=== PATIENT | male | born 1950 | race Caucasian/White ===

== ENCOUNTER 2017-03-31 08:30 | Emergency (ER) | payer SELFPAY ==
--- NOTE | 2017-03-31 10:08 | RAD ---
HISTORY: Cough COMPARISONS: January 10, 2005 VIEWS: 4: Frontal dual-energy and lateral views of the chest. FINDINGS: CARDIOMEDIASTINAL SILHOUETTE: The cardiomediastinal silhouette is normal. TIMI: The timi are normal. PLEURA: The costophrenic angles are sharp. No pleural abnormalities are noted. LUNG PARENCHYMA: There is focal opacification of the right upper lung measuring approximately 4.9 cm in size. This is new from the 2005 examination. There is hyperinflation. ABDOMEN: The upper abdomen is clear. There is no subphrenic gas. BONES AND SOFT TISSUES: No bone or soft tissue abnormalities are noted. OTHER: None. IMPRESSION: FOCAL MASSLIKE OPACIFICATION OF THE RIGHT UPPER LUNG. RECOMMEND CONSIDERATION OF FURTHER EVALUATION WITH CONTRAST ENHANCED CT OF THE CHEST. COPD.
[2017-03-31 11:00] VITALS: BP 131/73
--- NOTE | 2017-03-31 12:30 | UC ---
Maximiliano Hurtado Angela, scribed for Nereida Lomas MD on 03/31/17 at 0922 . General HPI - HPI Summary HPI Summary: This pt is a 67 y/o male presenting to [facility] c/o feeling weak, tired progressively worse x approx 7 days. Donated blood one week ago (double red cells), felt tired the next day, but did not get better. Also noted cough, started a day or two before he donated blood. Cough has continued, with occasional white sputum production. Nausea x4 days, no vomit. Some loose stool , dark colored since yesterday, but has been taking Peptobismal last several days (without sx improvement). Has been able to work but, but has been tired. No loc. No rash. No recent fever but possibly a little warm. No chest pressure or pain perse. No shoulder or jaw discomfort. No recent travel. Non- smoker, quit several years ago Appetite poor last several days 2/2 nausea and feeling of unwellness. - History of Current Complaint Chief Complaint: UCGeneralIllness Stated Complaint: NAUSEA Time Seen by Provider: 03/31/17 09:16 Hx Obtained From: Patient Onset/Duration: Lasting Days, Still Present Timing: Constant Associated Signs & Symptoms: Positive: Nausea. Negative: Vomiting - Allergy/Home Medications Allergies/Adverse Reactions: Allergies Allergy/AdvReac Type Severity Reaction Status Date / Time Codeine Allergy Intermediate Hallucinati Verified 03/31/17 08:37 ons PMH/Surg Hx/FS Hx/Imm Hx Previously Healthy: Yes - denies health issues, but hasn't seen a doctor recently Other Endocrine History: DENIES: diabetes Other Cardiovascular History: DENIES: HTN - Surgical History Surgical History: Yes Surgery Procedure, Year, and Place: abd surgery bowel obstruction 2008 - Family History Known Family History: Positive: Cardiac Disease - Father: CAD. - Social History Alcohol Use: Occasionally Alcohol Amount: 16 OZ PER MONTH Substance Use Type: None Smoking Status (MU): Never Smoked Tobacco Have You Smoked in the Last Year: No - Immunization History Most Recent Influenza Vaccination: NEVER Most Recent Tetanus Shot: 05/24/15 Most Recent Pneumonia Vaccination: NEVER Review of Systems Constitutional: Fatigue - see hpi Skin: Negative Eyes: Negative ENT: Negative Respiratory: Cough Cardiovascular: Negative Gastrointestinal: Nausea Genitourinary: Negative Motor: Negative Neurovascular: Negative Musculoskeletal: Negative Neurological: Negative Psychological: Negative Is Patient Immunocompromised?: No All Other Systems Reviewed And Are Negative: Yes Physical Exam Triage Information Reviewed: Yes Appearance: Well-Nourished - sitting up. conversing easily and appropriately. NAD. Nontoxic. Looks tired. A little pale. Vital Signs: Initial Vital Signs Temp 99.3 F 03/31/17 08:37 Pulse 65 03/31/17 08:37 Resp 16 03/31/17 08:37 BP 140/76 03/31/17 08:37 Pulse Ox 95 03/31/17 08:37 Vital Signs Reviewed: Yes Eye Exam: Normal ENT Exam: Normal ENT: Positive: Pharynx normal Neck exam: Normal Neck: Positive: Supple Respiratory Exam: Normal Respiratory: Positive: Chest non-tender, Lungs clear - w/o exp wheeze, Normal breath sounds, No respiratory distress, No accessory muscle use Cardiovascular Exam: Normal Cardiovascular: Positive: RRR, No Murmur, Pulses Normal, Brisk Capillary Refill Abdominal Exam: Normal - no cvat appreciated. Abdomen Description: Positive: Nontender, No Organomegaly, Soft Bowel Sounds: Positive: Hyperactive - hyperactive but o/w normal Musculoskeletal Exam: Normal Musculoskeletal: Positive: Strength Intact - gait steady Neurological Exam: Normal - nonfocal, grossly intact Psychological Exam: Normal - conversing easily and appropriately Skin Exam: Normal - no visible or reported rash. a little pale. nondiaphoretic. Diagnostics - Radiology Chest XR Xray Interpretation: Positive (See Comments) - IMPRESSION: Focal masslike opacification of the right upper lung. Recommend consideration of further evaluation with contrast enhanced CT of the chest. COPD. ED physician has reviewed this radiology report and agrees. Radiology Interpretation Completed By: Radiologist - EKG Cardiac Rate: NL Cardiac Rhythm: Sinus: Normal - 60 bpm, PT 143, QTc 393. Questionable Qs in II, III, and aVF. No old EKG to compare. Course/Dx - Course Course Of Treatment: Reviewed EKG, no old for comparison. Reviewed Urine dip, FS glucose with pt (see below). Reviewed CXR and report, also spoke with Radiologist. Pt drank apple juice w/o difficulty or increased nausea report while in [facility] (after BG FS). I reviewed CXR report with pt. Given this (CXR) and general constellation of symptoms, benitez in the setting of recent blood loss ( double rbc donation), recommend evaluation / management in the ED. D/w Mr. Hernandez, who carefully considered, and agrees to go to the ED. Declines EMS, will drive. Questions as posed answered to the best of my ability. Elevated BP noted and advised to follow up with PCP. POC glucose is 61. Urine dip shows urine color yellow, urine clarity clear, urine pH 6.0, specif gravity 1.020, urine protein is negative, ur glucose is negative, urine ketones is negative, urine blood is negative, urine nitrite is negative, urine bilirubin is negative , urine urobilinogen is 0.2, u leukocyte esterase is negative. At 10:45, I spoke with YAHIR Villar from [facility]. - Differential Dx - Multi-Symptom Provider Diagnoses: Nausea, fatigue (see above MDM). cough, abnormal chest xray Discharge - Discharge Plan Condition: Guarded Disposition: ADMITTED TO [facility] Referrals: Mikal Martin MD [Primary Care Provider] - Additional Instructions: Please go to the Emergency Department. Call 911 if worse or new problem in the meantime. The documentation as recorded by the Maximiliano james Angela accurately reflects the service I personally performed and the decisions made by me, Nereida Lomas MD.
== END 2017-03-31 11:00 | disposition home or self-care (01) ==
LOC: UCEAST 08:30
DX: R53.83 Other fatigue (principal); R11.0 Nausea; R05 Cough; Z88.5 Allergy status to narcotic agent
CPT/HCPCS: 71020; 81003; 87502; 93005; 99212; G0463

== ENCOUNTER 2017-03-31 11:40 | Inpatient (IN) | payer MEDICARE ==
[2017-03-31] MEDS ORDERED: NS 0.9% 1000 ML* 1,000 ML IV ONE (12:21)
[2017-03-31] MEDS ORDERED: Ondansetron INJ* 2 MG/ML VIAL IV ONE (12:21)
[2017-03-31] MEDS ORDERED: Albuterol/Ipratropium NEB.SOL* Albuterol 2.5 MG/Ipratropium 0.5 MG 3 ML INH ONE (12:23)
[2017-03-31 13:00] LABS: Hematocrit 39 % (42-52); Hemoglobin 13.2 g/dl (14.0-18.0); Mean Corpuscular HGB Conc 34 g/dl (31-36); Mean Corpuscular Hemoglobin 32 pg (27-31); Mean Corpuscular Volume 93 fL (80-94); Mean Platelet Volume 8 um3 (7.4-10.4); Red Blood Count 4.18 10^6/ul (4.0-5.4); Red Cell Distribution Width 13 % (10.5-15); White Blood Count 8.9 10^3/ul (3.5-10.8)
[2017-03-31 13:19] LABS: Albumin 3.5 g/dL (3.2-5.2); BUN/Creatinine Ratio 16.7 (8-20); C Reactive Protein 42.55 mg/L (< 5.00); Calcium 8.7 mg/dL (8.6-10.3); EGFR African American 108.2 (>60); EGFR Non-African American 84.2 (>60); Globulin 3.6 g/dL (2-4); Potassium 3.9 mmol/L (3.5-5.0); Total Bilirubin 0.4 mg/dL (0.2-1.0); Total Protein 7.1 g/dL (6.4-8.9)
[2017-03-31] MEDS ORDERED: Iohexol 300* (CONTRAST) 10 ML SDV IV ONE (13:40)
--- NOTE | 2017-03-31 14:26 | RAD ---
INDICATION: RIGHT upper lung opacification noted on March 31, 2017 chest radiograph in setting of cough and nausea. COMPARISON: Chest radiograph of the same date TECHNIQUE: Multidetector CT images were obtained from the lung apices to the upper abdomen with 80 mL Omnipaque 300 IV contrast. Multiplanar reformation. REPORT: Corresponding with the chest radiograph there is a spiculated 4.1 x 2.3 cm masslike region of consolidation containing a few calcifications. At the apical segment of the RIGHT upper lobe. Mild inferior lingula greater than inferior RIGHT middle lobe airspace consolidation. Negative for pleural effusions. Small calcified mediastinal and hilar lymph nodes. Negative for thoracic lymphadenopathy. Negative for cardiomegaly or pericardial effusion. Normal diameter thoracic aorta. Unremarkable Limited images through the upper abdomen. Negative for suspicious focal osseous lesions. Mild thoracic degenerative spondylosis and mild dextroscoliosis. IMPRESSION: 1. Masslike consolidation at the apical segment of the RIGHT upper lobe corresponding with the radiographic finding containing a few calcifications. Given stigmata of prior granulomatous disease the differential includes post primary tuberculosis as well as lung carcinoma. 2. Mild alveolar consolidation at the inferior lingula and inferior RIGHT middle lobe. 3. Negative for pleural effusions. 4. Negative for thoracic lymphadenopathy.
[2017-03-31] MEDS ORDERED: Levofloxacin 750 MG IVPREMIX(* 750 MG/150 ML BAG IVPB ONE (14:55)
--- NOTE | 2017-03-31 15:42 | ED ---
Jozef Hurtado Benjamin, scribed for Finn Crain MD on 03/31/17 at 1233 . Respiratory - HPI Summary HPI Summary: 67yo male was sent to for further evaluation. Pt was seen at for nausea, and URI symptoms. Pt reports productive cough that he is unable to clear, and slight wheezing. Pt also reports decreased appetite. Pt donated double bag blood last Thursday. Pt took 8 units of peptobismal yesterday trying to relieve his symptoms but saw no relief. Pt also reported dark loose stool x1 after. Denies pain anywhere however reports some mild abdominal discomfort, stating doesnt feel right. Also denies leg swelling. Pt does not smoke. - History of Current Complaint Chief Complaint: EDGeneral Stated Complaint: GENERAL ILLNESS Time Seen by Provider: 03/31/17 12:03 Hx Obtained From: Patient Onset/Duration: Gradual Onset, Lasting Days, Still Present Timing: Constant Initial Severity: Mild Current Severity: Mild Pain Intensity: 0 Character: Wheezing, Cough (Productive) Sputum Amount: Small Aggravating Factor(s): Nothing Alleviating Factor(s): Nothing Associated Signs and Symptoms: URI, Wheezing - Allergy/Home Medications Allergies/Adverse Reactions: Allergies Allergy/AdvReac Type Severity Reaction Status Date / Time Codeine Allergy Intermediate Hallucinati Verified 03/31/17 08:37 ons PMH/Surg Hx/FS Hx/Imm Hx Endocrine/Hematology History: Denies: Hx Diabetes, Hx Thyroid Disease Cardiovascular History: Reports: Other Cardiovascular Problems/Disorders - SLIGHT ABNORMAL HEART BEAT Denies: Hx Hypertension Respiratory History: Denies: Hx Asthma, Hx Chronic Obstructive Pulmonary Disease (COPD) GI History: Denies: Hx Ulcer, Other GI Disorders History: Denies: Other Problems/Disorders Musculoskeletal History: Denies: Other Musculoskeletal History - SLIGHT SCOLIOSIS Sensory History: Reports: Hx Contacts or Glasses - READING Denies: Hx Hearing Aid Opthamlomology History: Reports: Hx Contacts or Glasses - READING Neurological History: Denies: Other Neuro Impairments/Disorders - Surgical History Surgery Procedure, Year, and Place: abd surgery bowel obstruction 2009 Hx Anesthesia Reactions: No - Immunization History Date of Tetanus Vaccine: Unk Date of Influenza Vaccine: None Infectious Disease History: No Infectious Disease History: Denies: Hx Clostridium Difficile, Hx Hepatitis, Hx Human Immunodeficiency Virus (HIV), Hx of Known/Suspected MRSA, Hx Shingles, Hx Tuberculosis, Hx Known/ Suspected VRE, Hx Known/Suspected VRSA, History Other Infectious Disease, Traveled Outside the [place] in Last 30 Days - Family History Known Family History: Positive: Hypertension - Social History Occupation: Employed Full-time Alcohol Use: Occasionally Alcohol Amount: 16 OZ PER MONTH Substance Use Type: Reports: None Hx Tobacco Use: No Smoking Status (MU): Never Smoked Tobacco Have You Smoked in the Last Year: No Review of Systems Constitutional: Negative Eyes: Negative ENT: Negative Cardiovascular: Negative Positive: Cough Positive: Nausea Genitourinary: Negative Musculoskeletal: Negative Skin: Negative Neurological: Negative Psychological: Normal All Other Systems Reviewed And Are Negative: Yes Physical Exam - Summary Physical Exam Summary: VITAL SIGNS: Reviewed. GENERAL: Patient is a well-developed and nourished male who is lying comfortable in the stretcher. Patient is not in any acute respiratory distress. HEAD AND FACE: No signs of trauma. No ecchymosis, hematomas or skull depressions. No sinus tenderness. EYES: PERRLA, EOMI x 2, No injected conjunctiva, no nystagmus. EARS: Hearing grossly intact. Ear canals and tympanic membranes are within normal limits. MOUTH: Oropharynx within normal limits. NECK: Supple, trachea is midline, no adenopathy, no JVD, no carotid bruit, no c- spine tenderness, neck with full ROM. CHEST: Symmetric, no tenderness at palpation LUNGS: Wheezing in lungs, bilaterally. No crackles. CVS: Regular rate and rhythm, S1 and S2 present, no murmurs or gallops appreciated. ABDOMEN: Soft, non-tender. No signs of distention. No rebound no guarding, and no masses palpated. Bowel sounds are normal. EXTREMITIES: FROM in all major joints, no edema, no cyanosis or clubbing. NEURO: Alert and oriented x 3. No acute neurological deficits. Speech is normal and follows commands. SKIN: Dry and warm Triage Information Reviewed: Yes Vital Signs On Initial Exam: Initial Vitals Temp Pulse Resp BP Pulse Ox 98.4 F 64 20 107/70 95 03/31/17 11:54 03/31/17 11:54 03/31/17 11:54 03/31/17 11:54 03/31/17 11:54 Vital Signs Reviewed: Yes - [place] Coma Scale Coma Scale Total: 15 Diagnostics - Vital Signs Vital Signs Temp Pulse Resp BP Pulse Ox 03/31/17 12:15 67 94 03/31/17 12:14 129/84 03/31/17 11:54 98.4 F 64 20 107/70 95 - Laboratory Lab Results: Lab Results 03/31/17 03/31/17 03/31/17 Range/Units 12:41 12:41 12:41 WBC 8.9 (3.5-10.8) 10^3/ul RBC 4.18 (4.0-5.4) 10^6/ul Hgb 13.2 L (14.0-18.0) g/dl Hct 39 L (42-52) % MCV 93 (80-94) fL MCH 32 H (27-31) pg MCHC 34 (31-36) g/dl RDW 13 (10.5-15) % Plt Count 284 (150-450) 10^3/ul MPV 8 (7.4-10.4) um3 Neut % (Auto) 73.9 (38-83) % Lymph % (Auto) 14.7 L (25-47) % [place] % (Auto) 8.8 (1-9) % Eos % (Auto) 2.0 (0-6) % Baso % (Auto) 0.6 (0-2) % Absolute Neuts (auto) 6.6 (1.5-7.7) 10^3/ul Absolute Lymphs (auto) 1.3 (1.0-4.8) 10^3/ul Absolute Monos (auto) 0.8 (0-0.8) 10^3/ul Absolute Eos (auto) 0.2 (0-0.6) 10^3/ul Absolute Basos (auto) 0.1 (0-0.2) 10^3/ul Absolute Nucleated RBC 0 10^3/ul Nucleated RBC % 0 Sodium 135 (133-145) mmol/L Potassium 3.9 (3.5-5.0) mmol/L Chloride 101 (101-111) mmol/L Carbon Dioxide 28 (22-32) mmol/L Anion Gap 6 (2-11) mmol/L BUN 15 (6-24) mg/dL Creatinine 0.90 (0.67-1.17) mg/dL Est GFR ( Amer) 108.2 (>60) Est GFR (Non-Af Amer) 84.2 (>60) BUN/Creatinine Ratio 16.7 (8-20) Glucose 94 (70-100) mg/dL Calcium 8.7 (8.6-10.3) mg/dL Total Bilirubin 0.40 (0.2-1.0) mg/dL AST 14 (13-39) U/L ALT 17 (7-52) U/L Alkaline Phosphatase 62 (34-104) U/L Troponin I 0.00 (<0.04) ng/mL C-Reactive Protein 42.55 H (< 5.00) mg/L B-Natriuretic Peptide 29 ( - 100) pg/mL Total Protein 7.1 (6.4-8.9) g/dL Albumin 3.5 (3.2-5.2) g/dL Globulin 3.6 (2-4) g/dL Albumin/Globulin Ratio 1.0 (1-3) Result Diagrams: 03/31/17 12:41 03/31/17 12:41 Lab Statement: Any lab studies that have been ordered have been reviewed, and results considered in the medical decision making process. - CT CT Brain CT Interpretation: Positive (See Comments) - IMPRESSION: 1. Masslike consolidation at the apical segment of the RIGHT upper lobe corresponding with the radiographic finding containing a few calcifications. Given stigmata of prior granulomatous disease the differential includes post primary tuberculosis as well as lung carcinoma. 2. Mild alveolar consolidation at the inferior lingula and inferior RIGHT middle lobe. 3. Negative for pleural effusions. 4. Negative for thoracic lymphadenopathy. CT Interpretation Completed By: Radiologist - EKG 1238. Cardiac Rate: NL - 64bpm EKG Rhythm: Sinus Rhythm EKG Interpretation: no ST elevation, Q waves in v2 and v3. Re-Evaluation - Re-Evaluation First Eval Re-Evaluation Time: 15:08 Comment: Reviewed pt's lab and imaging results. Informed the pt about the treatment plans and the admission decision. Disposition - Course Course Of Treatment: Consulted Dr. Sorensen (Hospitalist) at 1502 regarding admission. He will admit the pt. Assessment/Plan: In the ED course an IV access was obtained. Patient was placed in a monitoring tech. Patient was started with IV fluids. He was given Duoneb for Wheezing. Labs without any significant abnormality except for slight anemia , and CRP 42.5. Troponin #1: 0.00. EKG shows a NSR w/o ST elevations. CXR IMPRESSION: FOCAL MASSLIKE OPACIFICATION OF THE RIGHT UPPER LUNG. RECOMMEND CONSIDERATION OF FURTHER EVALUATION WITH CONTRAST ENHANCED CT OF THE CHEST. COPD. Chest CT IMPRESSION: 1. Masslike consolidation at the apical segment of the RIGHT upper lobe corresponding with the radiographic finding containing a few calcifications. Given stigmata of prior granulomatous disease the differential includes post primary tuberculosis as well as lung carcinoma. 2. Mild alveolar consolidation at the inferior lingula and inferior RIGHT middle lobe. 3. Negative for pleural effusions. 4. Negative for thoracic lymphadenopathy. In the ED course he was given Levaquin for his Pneumonia. I discuss my physical exam, findings and test results with Dr. Sorensen from the hospitalist services and she agrees to admit patient to his services. Patient is hemodynamically stable alert and oriented x 3. - Differential Dx - Cardiopulmonary Differential Diagnoses - Cardiopulmonary: Bronchitis, CHF, Chest Wall Pain, Exacerbation Of COPD - Diagnoses Provider Diagnoses: Pneumonia, Lung mass Discharge - Discharge Plan Condition: Stable Disposition: ADMITTED TO [facility] documentation as recorded by the Jozef james Benjamin accurately reflects the service I personally performed and the decisions made by me, Finn Crain MD.
[2017-03-31 16:48] LABS: Urine Bilirubin Negative (Negative); Urine Glucose Negative (Negative); Urine Nitrite Negative (Negative)
[2017-03-31] MEDS: Azithromycin IV(*) 500 MG in NS 0.9% 250 ML* 250 ML IVPB SCH (20:24)
[2017-03-31] MEDS: cefTRIAXone VIAL(*) 1,000 MG in NS 0.9% 50 ML* 50 ML IVPB SCH (21:45)
[2017-03-31] MEDS: Benzonatate CAP* 100 MG PO SCH (21:50)
[2017-03-31] MEDS: Heparin VIAL(*) 5000 UNITS/ML VIAL (FIVE THOUSAND) SUBCUT SCH (21:53)
--- NOTE | 2017-03-31 23:33 | HP ---
CC: Heidi Perrin MD DATE OF ADMISSION: 03/31/17 PRIMARY CARE PHYSICIAN: Heidi Perrin MD CHIEF COMPLAINT: Cough. HISTORY OF PRESENT ILLNESS: The patient is a 67-year-old gentleman has been feeling up and down in the last couple of weeks and feeling like he needs to rest more. 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 He has developed a cough, it is nonproductive and nausea. He has tried cough medications, Pepto-Bismol and nothing seems to work. He went to [facility] because the cough would not get better and he was told thereafter an x-ray there is something on his lungs, so he came to the hospital for further evaluation. He denies any wheezing. He denies any chest pain. He tried Mucinex to meet the cough breakup , but it did not. He has denied weight loss, in fact he says he has weight gain. He has no history of tobacco abuse. He has no history of granulomatous disease as indicated in the x-ray. PAST MEDICAL HISTORY: Significant only for bowel occlusion 10 years ago. MEDICATIONS: He is currently on no medications. ALLERGIES: No known drug allergies as per the patient. FAMILY HISTORY: Mother of heart issues. Father of heart issues. He had a sister, who of leukemia. SOCIAL HISTORY: No tobacco, rare alcohol, no recreational drug use. 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 He is . He has no children. REVIEW OF SYSTEMS: A 14-point review of systems was completed with the patient. All pertinent positives and negatives are in the history of present illness, otherwise it is negative. PHYSICAL EXAMINATION GENERAL: A pleasant gentleman, lying in bed, in no acute distress. VITAL SIGNS: Blood pressure 106/68, pulse ox is 92%, heart rate 56 beats per minute, respiratory rate is 20 breaths per minute, temperature 98.4 degrees. HEENT: Normocephalic, atraumatic. Pupils equal, round and reactive to light. Moist mucous membranes. NECK: Supple. No JVD, bruits, palpable thyroid, or lymphadenopathy. CHEST: Clear to auscultation and percussion bilaterally. CARDIOVASCULAR: S1, S2 appreciated. ABDOMEN: Positive bowel sounds in all 4 quadrants. Soft, nontender, nondistended, no hepatosplenomegaly. EXTREMITIES: No cyanosis, clubbing or edema. +2 pulses bilaterally. NEURO: He is alert and oriented x3. Moves all extremities. SKIN: No rashes or abnormalities. DIAGNOSTIC STUDIES/LAB DATA: White count 8.9, hemoglobin 13.2, hematocrit 39, and platelets 284. Sodium 135, potassium 3.9, chloride 102, CO2 28, BUN 15, creatinine 0.90, and glucose is 94. Urinalysis is unremarkable. Chest CT was interpreted by Radiology as mass-like consolidation at the apical segment of the right upper lobe corresponding with the radiographic finding concerning of 2 calcifications. Given the stigmata of prior granulomatous disease, the differential includes postprimary tuberculosis as well as lung carcinoma. Mild alveolar consolidation in the inferior lingula and right middle lobe, negative for pleural effusions and negative for thoracic lymphadenopathy. EKG shows normal sinus rhythm at 64 beats per minute, normal axis. No acute ST-T wave changes. ASSESSMENT AND PLAN: 1. Possible pneumonia with concern for mass. We will admit patient, started Rocephin 1 g IV daily, Zithromax 500 mg IV daily. Check sputum for C and S, urine for Legionella and pneumococcal antigen. I will ask Pulmonary to see the patient tomorrow. May benefit from bronchoscopy. 2. FEN: Regular diet. 3. DVT prophylaxis. Heparin subcu. 4. The patient is a full code. TIME SPENT: Over 75 minutes were spent on this H and P, more than 40 minutes of which was spent in direct [id number] contact with the patient in evaluation , physical exam, counseling, and coordination of care. [id number]/CPS #: [id number] MTDD
[2017-04-01] MEDS: Heparin VIAL(*) 5000 UNITS/ML VIAL (FIVE THOUSAND) SUBCUT SCH ×3 (04:59→20:56)
[2017-04-01] MEDS: Benzonatate CAP* 100 MG PO SCH ×3 (09:58→20:58)
--- NOTE | 2017-04-01 13:01 | CONS ---
CONSULTATION REPORT: DATE OF CONSULT: 04/01/17 REQUESTING PHYSICIAN: Dr. Walter Sorensen. CONSULTING SERVICE: Infectious Disease. REASON FOR CONSULT: Cough, lung mass. IMPRESSION: A week and a half of nonproductive cough, worse lying down. CT scan shows mass-like consolidation in the apical segment right upper lobe with a few calcifications and small calcified mediastinal hilar lymph node. He has had no fevers, chills, or sweats. He has had a little of nausea. Today, his cough is better, his nausea has resolved, and his appetite has been great. His symptoms are not highly suggestive of tuberculosis, though with calcifications, it is something of a consideration. He is unable to produce any sputum, we can try and induce one but I am not optimistic. We can add a QuantiFERON to help build the case, though he has no striking epidemiologic history to suggest TB exposure. Other infectious considerations include community-acquired pneumonia, given his feeling better on CAP treatments that may be part of the program. Noninfectious including malignancy are in the list as well. RECOMMENDATION: Continue therapy for community-acquired pneumonia, though not for quinolone as that can partially treat tuberculosis and mask if symptoms. Consult with Dr. Crockett. A consideration would be treat for community-acquired pneumonia, repeat the CT scan in a month, though I defer to her on that as well. HISTORY OF PRESENT ILLNESS: This is a 67-year-old man, who has been healthy, admitted with a week and a half of cough. It came on about 10 days ago, it has been nonproductive, worse when he lies down. No chest pain. No shortness of breath. He had some low-grade nausea and decrease in appetite for a few days. Because of that combination of symptoms, he went to Urgent Care, a chest x-ray showed right upper lobe mass. He was referred to the ER with CT findings as noted above. Because of the mass, he was admitted to the hospital, placed on airborne precautions. A sputum sample which was mostly spit was obtained and a Gram stain showed 3+ epithelial cells, no neutrophils. He had a C-reactive protein of 42. No white blood cell count elevation. Normal urinalysis. He had ceftriaxone, azithromycin, and Levaquin. This morning, he has improved appetite, no nausea, and a cough only when he lies down at night. No chest pain or shortness of breath. No fevers, chills, sweats. His weight has been stable. He has not had TB contact, has never been in fci, retirement, , or homeless jail. He has no relatives who have had TB. He never had any skin testing for TB. PAST MEDICAL HISTORY: 1. Small bowel obstruction, status post exploratory laparotomy. 2. Status post transurethral resection of the prostate. MEDICATIONS: 1. Tessalon caplet. 2. Heparin subcutaneous injection. 3. Ceftriaxone 1 g daily. 4. Azithromycin 500 mg daily. ALLERGIES: No known drug allergies. FAMILY HISTORY: Parents with coronary artery disease, both . SOCIAL HISTORY: He lives in [place]. He lives by himself. He has no pets. 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 He has never lived in other countries and has limited foreign travel. REVIEW OF SYSTEMS: A 14-point review of systems was negative except as noted above. PHYSICAL EXAM: Vital Signs: Temperature 36, heart rate 60, respiratory rate 16 , blood pressure 120/62, O2 sat 92% on room air. In general, he is awake, not in distress. Neurologic: He is oriented x3. Follows all commands. HEENT: There is no conjunctival hemorrhage. Oropharynx is without lesions. Neck: Supple without nuchal rigidity. Lymph Nodes: There is no inguinal, axillary, or epitrochlear lymphadenopathy. Heart: Regular rate and rhythm without murmurs, rubs, or gallops. Lungs: Clear to auscultation bilaterally. Abdomen : Soft, nontender, and nondistended. Bowel sounds present. Skin: There is no rash or splinter hemorrhages. Musculoskeletal: There is no spine tenderness to palpation or joint synovitis. LABORATORY DATA: White blood cell count 8, hemoglobin 13, platelets 284. Creatinine is 0.9. Please see impressions and recommendations as outlined above , which I have discussed with Dr. Sorensen. Thank you for asking me to see Mr. Hernandez in consultation. [id number]/[facility] #: [id number] BENJAMÍN
--- NOTE | 2017-04-01 14:46 | CONS ---
PULMONARY CONSULTATION REPORT: DATE OF CONSULT: 04/01/17 REQUESTING PHYSICIAN: Dr. Walter Sorensen. REASON FOR CONSULT: Evaluation of abnormal CT chest. HISTORY OF PRESENT ILLNESS: The patient is a 67-year-old male with no significant past medical history other than bowel occlusion 10 years ago, presents for evaluation of cough. The patient has been feeling down over the past couple of weeks with fatigue and feeling run down. He also reports nonproductive cough and nausea that did not improve with elec-wmp-[id number] medications and was seen in [facility]. The patient had chest x-ray and was found to have some abnormality and was sent into the emergency room for further evaluation. The patient had CT scan of the chest performed in the emergency room. I personally reviewed CT scan of the chest with the patient today as an inpatient, noted to have spiculated right upper lobe density and density also in the left mid lung area. There was no evidence of significant mediastinal or hilar adenopathy. There were no other pulmonary nodules noted. The density also had few areas of calcification. No pleural effusions were noted. Small calcified mediastinal and hilar nodes were noted. The patient was started on antibiotics for possible pneumonia. The patient was seen and examined at the bedside later today. The patient reported improvement in symptoms. Infectious Disease was also consulted given the above findings. The patient could not cough up any phlegm. PAST MEDICAL HISTORY: Bowel occlusion 10 years ago. MEDICATIONS: Not on any medications at home. ALLERGIES: No known drug allergies. FAMILY HISTORY: Mother of heart issues, father of heart issues. Sister has leukemia. SOCIAL HISTORY: No tobacco, alcohol, or drug abuse. 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 REVIEW OF SYSTEMS: Fourteen systems were reviewed. The patient denied night sweats, fevers, loss of weight or appetite recently. No known history of exposure to TB cases. He denies any weight loss. He denies shortness of breath or chest pain. He denies headaches, palpitations. PHYSICAL EXAM: The patient in bed, in no apparent distress. Vital Signs: Temperature 98, pulse 63 beats per minute, respiratory rate 16 per minute, O2 sats 95% on room air, blood pressure 102/54. HEENT: Pupils are equal and reactive to light, mucous membranes moist. Neck: Supple. No JVD. Chest: Clear to auscultation bilaterally. Cardiovascular: S1 and S2 present, regular. Abdomen: Soft, bowel sounds present, nondistended, and nontender. Extremities: No cyanosis, clubbing, or edema. Neurological: Alert, awake, and oriented x3. No focal deficits. Skin: No rash or abnormalities. DIAGNOSTIC STUDIES/LAB DATA: WBC count 8.9, hemoglobin 13.2, hematocrit 39, platelet count 284. Sodium 135, potassium 3.9, chloride 101, bicarb 28, BUN 15 , creatinine 0.9, glucose 94, calcium 8.7. T. bili 0.4, AST 14, ALT 17, alk phos 62. CRP 42. BNP 29. CT of the chest as described. IMPRESSION AND RECOMMENDATION: 67-year-old male with no significant past medical history, admitted with nausea, fatigue over the past 2 weeks, dry cough with CT chest showing evidence of spiculated density with some calcification and calcified mediastinal nodes. CT findings probably suggestive of subacute or chronic process given the calcifications. Given also with evidence of calcified mediastinal and hilar nodes, sarcoidosis in the differential. The patient might have had bronchitis or pneumonia on top of it. The patient with no EKG changes. No evidence of hypercalcemia. No suspicion for active tuberculosis as per Infectious Disease and I agree with that assessment. The patient can be discharged home. Will follow up the patient, schedule the patient for bronchoscopy and EBUS as outpatient. Thank you for allowing me to participate in the care of your patient. Will follow up with you. [id number]/[facility] #: [id number] BENJAMÍN
[2017-04-01] MEDS: Azithromycin IV(*) 500 MG in NS 0.9% 250 ML* 250 ML IVPB SCH (18:49)
--- NOTE | 2017-04-01 19:00 | PN ---
Subjective Date of Service: 04/01/17 Interval History: Patient feels better. Cough is breaking up now and more productive. Objective Active Medications: Benzonatate (Tessalon Cap*) 100 mg PO TID [facility] Last Admin: 04/01/17 15:20 Dose: 100 mg Heparin Sodium (Porcine) (Heparin Vial(*)) 5,000 units SUBCUT Q8HR [facility] Last Admin: 04/01/17 15:21 Dose: Not Given Ceftriaxone Sodium 1,000 mg/ (Sodium Chloride) 50 mls @ 200 mls/hr IVPB Q24H [facility] Last Admin: 03/31/17 21:45 Dose: 200 mls/hr Azithromycin 500 mg/ Sodium (Chloride) 250 mls @ 250 mls/hr IVPB Q24H [facility] Last Admin: 04/01/17 18:49 Dose: 250 mls/hr Vital Signs 04/01/17 04/01/17 04/01/17 00:24 03:18 08:00 Temperature 98.1 F 98.0 F Pulse Rate 66 65 Respiratory 16 16 18 Rate Blood Pressure 109/61 120/62 (mmHg) O2 Sat by Pulse 92 91 Oximetry 04/01/17 04/01/17 08:15 15:34 Temperature 98.4 F Pulse Rate 63 68 Respiratory 16 20 Rate Blood Pressure 102/54 121/64 (mmHg) O2 Sat by Pulse 95 97 Oximetry Oxygen Devices in Use Now: None Appearance: WD/WN gentleman lying in bed in NAD Eyes: No Scleral Icterus Ears/Nose/Mouth/Throat: Mucous Membranes Moist Neck: NL Appearance and Movements; NL JVP, No Thyroid Enlargement, Masses Respiratory: Clear to Auscultation Cardiovascular: NL Sounds; No Murmurs; No JVD, RRR Abdominal: NL Sounds; No Tenderness; No Distention, No Hepatosplenomegaly Lymphatic: No Cervical Adenopathy Extremities: No Clubbing, Cyanosis Skin: No Rash or Ulcers Neurological: Alert and Oriented x 3 Result Diagrams: 03/31/17 12:41 03/31/17 12:41 Additional Lab and Data: Lab Results 03/31/17 03/31/17 03/31/17 Range/Units 12:41 12:41 12:41 WBC 8.9 (3.5-10.8) 10^3/ul RBC 4.18 (4.0-5.4) 10^6/ul Hgb 13.2 L (14.0-18.0) g/dl Hct 39 L (42-52) % MCV 93 (80-94) fL MCH 32 H (27-31) pg MCHC 34 (31-36) g/dl RDW 13 (10.5-15) % Plt Count 284 (150-450) 10^3/ul MPV 8 (7.4-10.4) um3 Neut % (Auto) 73.9 (38-83) % Lymph % (Auto) 14.7 L (25-47) % [place] % (Auto) 8.8 (1-9) % Eos % (Auto) 2.0 (0-6) % Baso % (Auto) 0.6 (0-2) % Absolute Neuts (auto) 6.6 (1.5-7.7) 10^3/ul Absolute Lymphs (auto) 1.3 (1.0-4.8) 10^3/ul Absolute Monos (auto) 0.8 (0-0.8) 10^3/ul Absolute Eos (auto) 0.2 (0-0.6) 10^3/ul Absolute Basos (auto) 0.1 (0-0.2) 10^3/ul Absolute Nucleated RBC 0 10^3/ul Nucleated RBC % 0 Sodium 135 (133-145) mmol/L Potassium 3.9 (3.5-5.0) mmol/L Chloride 101 (101-111) mmol/L Carbon Dioxide 28 (22-32) mmol/L Anion Gap 6 (2-11) mmol/L BUN 15 (6-24) mg/dL Creatinine 0.90 (0.67-1.17) mg/dL Est GFR ( Amer) 108.2 (>60) Est GFR (Non-Af Amer) 84.2 (>60) BUN/Creatinine Ratio 16.7 (8-20) Glucose 94 (70-100) mg/dL Calcium 8.7 (8.6-10.3) mg/dL Total Bilirubin 0.40 (0.2-1.0) mg/dL AST 14 (13-39) U/L ALT 17 (7-52) U/L Alkaline Phosphatase 62 (34-104) U/L Troponin I 0.00 (<0.04) ng/mL C-Reactive Protein 42.55 H (< 5.00) mg/L B-Natriuretic Peptide 29 ( - 100) pg/mL Total Protein 7.1 (6.4-8.9) g/dL Albumin 3.5 (3.2-5.2) g/dL Globulin 3.6 (2-4) g/dL Albumin/Globulin Ratio 1.0 (1-3) Microbiology and Other Data: Microbiology 04/01/17 12:25 Acid Fast Bacilli Smear - Final Respiratory 04/01/17 12:25 Gram Stain - Final Sputum Expectorated Assess/Plan/Problems-Billing Assessment: 67 year old gentleman admitted with lung mass and cough. Differential included pneumonia, sarcoid, malignancy or tb. - Patient Problems (1) Lung mass Current Visit: Yes Status: Acute Code(s): R91.8 - OTHER NONSPECIFIC ABNORMAL FINDING OF LUNG FIELD SNOMED Code(s): 028115555 Comment: Appreciate pulmonary and ID's input. Unlikely TB. Pulmonary thinks maybe sarcoid. Get two sputums and DC home for follow up with Pulmonary. Continue Rocephin and Zithromax. (2) DVT prophylaxis Current Visit: Yes Status: Acute Code(s): QBE3968 - SNOMED Code(s): 977291528 Comment: Heparin sub q (3) Full code status Current Visit: Yes Status: Acute Code(s): Z78.9 - OTHER SPECIFIED HEALTH STATUS SNOMED Code(s): 626655127
[2017-04-01] MEDS: cefTRIAXone VIAL(*) 1,000 MG in NS 0.9% 50 ML* 50 ML IVPB SCH (21:28)
[2017-04-02] MEDS: Heparin VIAL(*) 5000 UNITS/ML VIAL (FIVE THOUSAND) SUBCUT SCH (05:10)
[2017-04-02] MEDS: Benzonatate CAP* 100 MG PO SCH (07:57)
[2017-04-02 08:22] VITALS: BP 124/75
--- NOTE | 2017-04-02 12:28 | PN ---
Progress Note - Progress Note Date of Service: 04/02/17 - Pulm f/u note Note: Pt seen and examined at bedside. Pt reprots breathing better. Anxious to go home Active Medications Generic Name Dose Route Start Last Admin Trade Name Radha PRN Reason Stop Dose Admin Benzonatate 100 mg 03/31/17 22:00 04/02/17 07:57 Tessalon Cap* PO 100 mg TID ANJUM Administration Heparin Sodium (Porcine) 5,000 units 03/31/17 22:00 04/02/17 05:10 Heparin Vial(*) SUBCUT Not Given Q8HR ANJUM Ceftriaxone Sodium 1,000 mg/ 50 mls @ 200 mls/hr 03/31/17 20:00 04/01/17 21: 28 Sodium Chloride IVPB 200 mls/hr Q24H ANJUM Administration Azithromycin 500 mg/ Sodium 250 mls @ 250 mls/hr 03/31/17 18:30 04/01/17 18: 49 Chloride IVPB 250 mls/hr Q24H ANJUM Administration Vital Signs Temp Pulse Resp BP Pulse Ox 98.0 F 65 18 124/75 98 04/02/17 07:43 04/02/17 07:43 04/02/17 08:00 04/02/17 07:43 04/02/17 07:43 General appearance: well appearing, NAD HEENT: normocephalic, atraumatic, PERRLA Neck: symmetric without masses or tracheal deviation, no thyromegaly Chest: normal respiratory effort , clear to auscultation b/l Cardiovascular: good color, warmth, and capillary refill in extremities, no peripheral edema Skin: no visible rashes, lesions, or ulcers Neurological/Psychiatric: No focal defecits Microbiology 04/02/17 05:10 Acid Fast Bacilli Smear - Final Respiratory 04/02/17 00:18 Gram Stain - Final Sputum 04/01/17 12:25 Acid Fast Bacilli Smear - Final Respiratory 04/01/17 12:25 Gram Stain - Final Sputum Expectorated I/R: 67 y o m with no signficnat PMH a/w nausea, fatigue found ot have Rt lung mass, AFBx2 negative Pt with RUL mass with calcifications and calcified mediastinal nodes Treated for PNA Less likely to be active TB- Sputum x2 neg for AFB Sarcoidosis versus fungal PNA versus lymphoma Plan to complete abx, rpt CT chest If mass persists will schedule for CT guided bx Plan discussed with pt and Dr Sorensen Pt to be d/c ed home with f/u in pulm clinic in 2 weeks
--- NOTE | 2017-04-03 03:26 | DS ---
CC: Heidi Perrin MD; Jerry Locke MD; Samaria Crockett MD* DISCHARGE SUMMARY: DATE OF ADMISSION: 03/31/17 DATE OF DISCHARGE: 04/02/17 ADMISSION DIAGNOSES: 1. Lung mass. 2. Cough. DISCHARGE DIAGNOSES: 1. Lung mass. 2. Cough. HOSPITAL COURSE: The patient is a 67-year-old gentleman who has been feeling weaker and having a cough for sometime prior to admission. He finally went to [facility] for evaluation. A chest x-ray was done, which showed significant mass. He had a CAT scan done in the ER, which showed the same mass , which could be raising from malignancy to granulomatous disease to TB. The patient was initially admitted to general medical floor, but because of the finding that it could be consistent with primary TB although unlikely by his clinical presentation he was placed into negative pressure room and we obtained AFB sputum. Pulmonary and Infectious Disease were consulted and they both thought again it was unlikely he had primary tuberculosis. We did get 2 negative AFB stains. The patient was stable to be discharged to home on antibiotics for possible pneumonia and he will follow with a looper fixer within 1 to 2 weeks as well. PHYSICAL EXAMINATION: On the date of discharge, well-developed, well-nourished gentleman, sitting up in bed, in no acute distress. Vitals Signs: Temperature 98 degrees, heart rate 65 beats per minute, respiratory rate 18 breaths per minute, pulse ox 98%, blood pressure 124/75. HEENT: Normocephalic, atraumatic. Pupils equal and reactive to light. Moist mucous membranes. Neck : Supple. No JVD, bruits, palpable thyroid or lymphadenopathy. Chest: Clear to auscultation and percussion bilaterally. Cardiovascular: S1, S2 appreciated. Abdominal Exam: Positive bowel sounds in all 4 quadrants. Soft, nontender, and nondistended. No hepatosplenomegaly. Extremities: No cyanosis , clubbing or edema. +2 peripheral pulses bilaterally. Neuro: Alert and oriented x3, moves all extremities. Skin: No rashes or abnormalities. STUDIES DONE WHILE IN THE HOSPITAL: Chest CT, 03/31/17, impression: Mass-like consolidation of the apical segment of the right upper lobe corresponding with the radiographic findings containing a few calcifications could be a stigmata of prior granulomatosis disease. The differential includes post primary tuberculosis as well as lung carcinoma. Mild alveolar consolidation in the inferior lingula and inferior right middle lobe. Negative for pleural effusion. Negative for lymphadenopathy. DISCHARGE MEDICATIONS: 1. Vantin 200 mg twice daily for 8 more days. 2. Tessalon Perles 100 mg 3 times a day as needed for cough. 3. Zithromax 500 mg p.o. daily for the next 3 days. DISCHARGE PLAN: The patient will be discharged home. He will follow up with his primary care doctor within 1 week as well as Dr. Crockett. The patient will return to the ED if he would develop any worrisome symptoms. TIME SPENT: Over 40 minutes were spent on this discharge, more than 25 minutes of which was spent in direct tycj-bw-[id number] contact with the patient in evaluation , physical exam, counseling and coordination of care. [id number]/[facility] #: [id number] MTDD
== END 2017-04-02 12:35 | disposition home or self-care (01) | DRG 195 ==
LOC: ED 11:40 → MED 17:02
PROVIDERS: ADMIT Internal Medicine; ATTEND Internal Medicine
DX: J18.9 Pneumonia, unspecified organism (principal); R05 Cough; R91.8 Other nonspecific abnormal finding of lung field; Z82.49 Family history of ischemic heart disease and other diseases of the circulatory system; Z80.6 Family history of leukemia
CPT/HCPCS: 36415; 71260; 80053; 81003; 82164; 83880; 84484; 85025; 86140; 87070; 87116; 87205; 87206; 87899; 93005; 94640; A9270-GY; J0456; J0696; J2405; Q9967

== ENCOUNTER 2017-11-28 10:10 | Emergency (ER) | payer MEDICARE ==
[2017-11-28 10:34] VITALS: BP 112/63
--- NOTE | 2017-11-28 11:11 | UC ---
Shoulder Pain HPI - HPI Summary HPI Summary: has had intermittant L shoulder pain over past 2 weeks. worse over past 2 days. 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 tried ibuprofen one dose and an OTC pain patch w/little relief - History of Current Complaint Chief Complaint: UCUpperExtremity Stated Complaint: SHOULDER PAIN Time Seen by Provider: 11/28/17 11:01 Hx Obtained From: Patient Onset/Duration: Gradual Onset Timing: Intermittent Episode Lasting - few hours Severity Initially: Mild Severity Currently: Moderate Pain Intensity: 3 Character: Throbbing, Stiffness Aggravating Factor(s): Movement, Lifting Alleviating Factor(s): Rest Associated Signs And Symptoms: Positive: Negative - Allergies/Home Medications Allergies/Adverse Reactions: Allergies Allergy/AdvReac Type Severity Reaction Status Date / Time codeine Allergy night tirado Verified 11/28/17 10:35 Home Medications: Home Medications NK [No Home Medications Reported] 11/28/17 [History Confirmed 11/28/17] PMH/Surg Hx/FS Hx/Imm Hx Previously Healthy: Yes - Surgical History Surgical History: Yes Surgery Procedure, Year, and Place: abd surgery bowel obstruction 2008 - Family History Known Family History: Positive: None, Hypertension - Social History Occupation: Employed Full-time Alcohol Use: Rare Alcohol Amount: 16 OZ PER MONTH Substance Use Type: None Smoking Status (MU): Never Smoked Tobacco Have You Smoked in the Last Year: No - Immunization History Most Recent Influenza Vaccination: NEVER Most Recent Tetanus Shot: 05/24/15 Most Recent Pneumonia Vaccination: NEVER Review of Systems Constitutional: Negative Respiratory: Negative Cardiovascular: Negative Musculoskeletal: Other: - L shoulder pain Neurological: Negative Psychological: Negative All Other Systems Reviewed And Are Negative: Yes Physical Exam Triage Information Reviewed: Yes Appearance: Well-Appearing, No Pain Distress, Well-Nourished Vital Signs: Initial Vital Signs Temp 98 F 11/28/17 10:32 Pulse 63 11/28/17 10:32 Resp 16 11/28/17 10:32 BP 112/63 11/28/17 10:32 Pulse Ox 99 11/28/17 10:32 Vital Signs Reviewed: Yes Respiratory Exam: Normal Cardiovascular Exam: Normal Musculoskeletal: Positive: Strength Intact, ROM Intact, Other: - pain L shoulder with full abduction and point tenderness superior bicep insertion area no swelling or warmth Psychological Exam: Normal Skin Exam: Normal Skin: Negative: rashes Shoulder Course/Dx - Differential Dx/Diagnosis Differential Diagnosis/HQI/PQRI: Bursitis, Rotator Cuff Injury, Sprain, Tendonitis Provider Diagnoses: tendonitis L shoulder Discharge - Sign-Out/Discharge Documenting (check all that apply): Discharge/Admit/Transfer - Discharge Plan Condition: Good Disposition: HOME Patient Education Materials: Tendinitis (ED) Referrals: Heidi Perrin MD [Primary Care Provider] - 5 Days (if no better) Additional Instructions: apply warm pad to shoulder 4 times a day use ibuprofen 600mg every 6 hours with food be mindful of body mechanics when lifting heavy objects and refrain from repetitive shoulder motion - Billing Disposition and Condition Condition: GOOD Disposition: Home
== END 2017-11-28 11:40 | disposition home or self-care (01) ==
LOC: UCEAST 10:10
DX: M75.92 Shoulder lesion, unspecified, left shoulder (principal); Z88.5 Allergy status to narcotic agent
CPT/HCPCS: 99211; G0463

== ENCOUNTER 2021-06-22 08:08 | Observation (INO) ==
[2021-06-22 09:13] LABS: ABS Eosinophils 0.1 10^3/ul (0-0.6); ABS Lymphocytes 1.3 10^3/ul (1.0-4.8); ABS Monocytes 0.5 10^3/ul (0-0.8); ABS Neutrophils 3.8 10^3/ul (1.5-7.7); Eosinophil % 1.5 %; Hematocrit 43 % (42-52); Hemoglobin 14.5 g/dL (14.0-18.0); Lymphocyte % 23.3 %; Mean Corpuscular HGB Conc 34 g/dL (31-36); Mean Corpuscular Hemoglobin 32 pg (27-31); Mean Corpuscular Volume 94 fL (80-94); Mean Platelet Volume 8.1 fL (7.4-10.4); Nucleated Red Blood Cells % 0.1; Platelet Count 238 10^3/uL (150-450); Red Blood Count 4.54 10^6 /uL (4.18-5.48); Red Cell Distribution Width 13 % (10-15); White Blood Count 5.7 10^3/uL (3.5-10.8)
[2021-06-22 09:32] LABS: Albumin 3.8 g/dL (3.2-5.2); Albumin/Globulin Ratio 1.3 (1-3); Calcium 8.9 mg/dL (8.6-10.3); Magnesium 1.8 mg/dL (1.9-2.7); Potassium 4.1 mmol/L (3.5-5.0); Total Bilirubin 0.5 mg/dL (0.2-1.0); Total Protein 6.8 g/dL (6.4-8.9); eGFR CKD-EPI 85.6 (>60)
[2021-06-22 10:11] LABS: TSH Ultra Thyroid Stim Horm 4.22 mcIU/mL (0.34-5.60)
[2021-06-22] MEDS ORDERED: Al Hydrox/Mg Hydrox/Simet LIQ 30 ML UDC PO PRN (10:39)
[2021-06-22] MEDS: Enoxaparin 40 MG/0.4 ML SYR SUBCUT SCH (11:46)
[2021-06-22] MEDS ORDERED: Magnesium Sulfate 2 gm BAG 2 GM/50 ML BAG IVPB ONE (12:04)
[2021-06-22] MEDS ORDERED: Magnesium Sulfate 2 gm BAG 2 GM/50 ML BAG ONE (12:10)
[2021-06-22] MEDS: NS 0.9% w/ 20 Meq KCL 1000 ml 1,000 ML IV SCH ×2 (12:15→20:20)
[2021-06-22] MEDS ORDERED: HYDROcodone/ACETAMIN 5/325 mg TAB PO ONE (20:12)
[2021-06-23] MEDS: NS 0.9% w/ 20 Meq KCL 1000 ml 1,000 ML IV SCH (03:59)
[2021-06-23 12:17] LABS: Calcium 8.3 mg/dL (8.6-10.3); Potassium 4.6 mmol/L (3.5-5.0); eGFR CKD-EPI 92.9 (>60)
[2021-06-23 12:21] VITALS: BP 107/67
[2021-06-23 12:27] LABS: ABS Eosinophils 0.1 10^3/ul (0-0.6); ABS Lymphocytes 1.5 10^3/ul (1.0-4.8); ABS Monocytes 0.4 10^3/ul (0-0.8); ABS Neutrophils 2.2 10^3/ul (1.5-7.7); Eosinophil % 2.4 %; Hematocrit 40 % (42-52); Hemoglobin 13.4 g/dL (14.0-18.0); Lymphocyte % 36.1 %; Mean Corpuscular HGB Conc 34 g/dL (31-36); Mean Corpuscular Hemoglobin 32 pg (27-31); Mean Corpuscular Volume 94 fL (80-94); Mean Platelet Volume 8.3 fL (7.4-10.4); Nucleated Red Blood Cells % 0.2; Platelet Count 206 10^3/uL (150-450); Red Blood Count 4.21 10^6 /uL (4.18-5.48); Red Cell Distribution Width 13 % (10-15); White Blood Count 4.3 10^3/uL (3.5-10.8)
[2021-06-23] MEDS: Enoxaparin 40 MG/0.4 ML SYR SUBCUT SCH (13:02)
== END 2021-06-23 16:15 | disposition home or self-care (01) ==
LOC: EDHOLD 08:08 → ED 08:08 → SUATTDRO 10:55 → MEDTELE 15:20
PROVIDERS: ADMIT Internal Medicine; ATTEND Family Medicine